=== PATIENT | male | born 1985 | race Caucasian/White ===

== ENCOUNTER 2020-07-14 19:21 | Emergency (ER) | payer OTHER, SELFPAY ==
[2020-07-14 19:22] VITALS: BP 128/71; PULSE 110; RESP 18; TEMP 39.1; O2SAT 91; BMI 45.8
--- NOTE | 2020-07-14 20:07 | ED.VISSUMM ---
- ER Visit Summary Date of Service: 07/14/20 Chief Complaint: Fever History of Present Illness: The patient is a 35 M presenting with fever. Patient states this has been ongoing for the past 8 days. He states he has had fever, chills. He complains of cough and shortness of breath. He has had nausea and diarrhea. He complains of myalgias and headache. He has had decreased appetite. He has had a change in his sense of taste. He has had decreased sense of smell since February. He was diagnosed with Covid in February and recovered. He states over the last week his girlfriend and her son also have had fever but they recovered after 24 hours. He has been taking Excedrin at home. Denies other complaints. Physical Examination: Vitals are stable. Temperature 102.4. Alert no acute distress. HEENT exam is unremarkable. Pharynx is normal Neck is supple. No meningismus Lungs are clear and equal bilaterally. Heart is regular tachycardic Abdomen is soft nontender nondistended. No guarding or rebound Extremities are unremarkable. Skin is warm and dry. No rash No focal neurologic deficit. Remainder of exam is unremarkable. Emergency Department Course and Treatment: Patient given IV fluids, Zofran, Tylenol. CBC, chemistries unremarkable. Total bili 1.5, ALT 68, AST 44. Urinalysis unremarkable. D-dimer 2.89. Chest x-ray read by myself and radiology shows no acute radiographic abnormalities. CTA of the chest shows no central or large peripheral pulmonary embolus. Trace bilateral pleural effusions. CT abdomen pelvis shows no acute abdominopelvic abnormality. Hepatosplenomegaly. Patient is feeling improved on reevaluation. Repeat temperature is 99.2. He is able to tolerate p.o. in the emergency department. He is given prescription for Zofran. Advised to follow up with primary care physician. Advised return to the ED for worsening complaints. Disposition: Discharge home Impression: Febrile illness This note was generated with [employer] dictation software. It may contain incorrect words, spelling, and punctuation that were not noted in review of the chart prior to signing ED Disposition - Plan for ED Patient: Disposition: Home or Assisted Living Instructions: ED FUO Adult Prescriptions: Ondansetron [Zofran Odt] 4 mg PO Q8H PRN PRN #10 tablet PRN Reason: Nausea Prescription Printed
[2020-07-14] MEDS: Acetaminophen 500 MG Tablet 1000 MG PO (20:23)
[2020-07-14 20:39] LABS: Red Blood Cells-Urine 0 SEEN /hpf (0-5); Squamous Epithelial Cells - UA 0 SEEN /hpf (0-5); White Blood Cells 0 SEEN /hpf (0-5)
[2020-07-14] MEDS: Ondansetron 4 MG/2 ML Vial IV (20:39)
[2020-07-14] MEDS: 0.9% Normal Saline 1,000 ML 1000 ML IV (20:39)
[2020-07-14 20:40] LABS: Absolute Lymphocyte Count 3.37 X10^3/uL (0.83-4.51); Absolute Neutrophil Count 3.4 X10^3/uL (2.0-7.7); Basophil# 0.09 X10^3/uL; Basophil% 1.2 % (0-1); Eosinophil# 0.18 X10^3/uL; Eosinophils% 2.3 % (0-5); Hematocrit 41.8 % (40-54); Hemoglobin 14.6 g/dL (13.0-16.5); Lymphocyte # 3.37 X10^3/ul (4.0); Lymphocyte % 43.3 % (19-41); Mean Corp Hgb Conc 34.9 g/dL (32-36); Mean Corpuscular Hgb 29.5 pg (27.0-32.0); Mean Corpuscular Volume 84.4 fL (80-94); Mean Platelet Vol. 10.2 fl (6.2-12.0); Monocyte# 0.73 X10^3/uL; Monocyte% 9.4 % (0-10); NRBC Flagged by Analyzer 0 % (0-5); Neutrophil # 3.38 X10^3/uL (2.7-7.7); Neutrophil % 43.4 % (47-70); POSITIVE MORPHOLOGY YES; Platelet Count 174 K/mm3 (150-450); RBC Distribution Width CV 12.8 % (11.6-14.6); RBC Distribution Width SD 39.4 fl (35.1-43.9); Red Blood Count 4.95 M/mm3 (4.6-6.2); White Blood Count 7.8 K/mm3 (4.4-11.0)
--- NOTE | 2020-07-14 20:45 | RAD_ITS ---
INDICATION: cough EXAMINATION/TECHNIQUE: X-RAY - XR Chest 1 View COMPARISON: None. FINDINGS: The lungs are clear. The cardiomediastinal silhouette is unremarkable. No pleural effusion or pneumothorax. No acute osseous abnormalities. RAD/Chest 1 View (Portable) IMPRESSION: No acute radiographic abnormalities. Electronically Signed: Juanjo Rodriguez MD at 21:01 EDT Tel , Service support ,
[2020-07-14 20:51] LABS: Color, Urine Amber (Yellow); Glucose, Dipstick Normal (Normal); Ketone-Dipstick 5 mg/dl (Negative); Leukocyte Esterase-Dipstick 25 /ul (Negative); Nitrite-Dipstick Negative (Negative); Occult Blood-Urine 25 /ul (Negative); Protein-Dipstick 30 mg/dl (Negative); Specific Gravity, Urine 1.015 (1.002-1.030); Urine Clarity Clear (Clear); Urine Urobilinogen 4 mg/dl (Normal)
[2020-07-14 20:54] LABS: Urine Bilirubin Dipstick 1 mg/dL (Negative)
[2020-07-14 20:56] LABS: Bacteria RARE /hpf (None Seen); Mucous, Urine RARE /hpf (<or=2+)
[2020-07-14 21:01] LABS: ALB/GLOB Ratio 0.8 RATIO (0.9-2.4); AST(SGOT) 44 U/L (15-37); Alanine Aminotransfer ALT/SGPT 68 U/L (16-61); Albumin, Serum 3.5 g/dL (3.2-5.0); Alkaline Phosphatase 99 U/L (45-117); Anion Gap 8 (5-15); BUN 9 mg/dL (7-18); BUN/Creat Ratio 7.8 RATIO (10-20); Calcium,Total 8.6 mg/dL (8.5-10.1); Chloride 102 mmol/L (98-107); Creatinine, Serum 1.16 mg/dL (0.70-1.30); EST Glomerular Filtration Rate 76 mL/min (>60); Est Glom Filt Rate - Afr Amer 91 mL/min (>60); Estimated Creatinine Clearance 108.08 ml/min; Globulin 4.2 g/dL (2.2-4.2); Glucose 113 mg/dL (74-106); Potassium 3.7 mmol/L (3.5-5.1); Protein, Total 7.7 g/dL (6.4-8.2); Sodium Level 135 mmol/L (136-145)
[2020-07-14 21:19] LABS: Differential Indicated SCAN CRITERIA MET
[2020-07-14 21:23] LABS: Differential Comment SCANNED; Reactive Lymphocyte 2+
[2020-07-14 21:39] LABS: D-Dimer Quantitative (DVT/PE) 2.89 FEU/ug/m (0.27-0.49)
--- NOTE | 2020-07-14 21:41 | CT_ITS ---
HISTORY: nausea, elevated liver enzymes ADDITIONAL HISTORY: None provided. EXAMINATION/TECHNIQUE: CT Abdomen And Pelvis W/ Contrast Injection CONTRAST: 100mL Isovue-370 IV contrast. Enteric contrast was not given. A radiation dose optimization technique was used for this scan. Number of images including paperwork: [id number] COMPARISON: And FINDINGS: LOWER THORAX: No consolidation. Trace bilateral pleural fluid. Enlarged, right lobe about 23 cm. LIVER: No concerning focal lesion. GALLBLADDER: No radiopaque calculi. BILE DUCTS: No significant biliary dilatation. SPLEEN: Enlarged, 19 cm craniocaudal. PANCREAS: Unremarkable. ADRENAL GLANDS: Unremarkable. KIDNEYS/URETERS: Unremarkable. BOWEL: No bowel obstruction. No significant bowel wall thickening. No localized inflammation. APPENDIX: No evidence of appendicitis. FREE FLUID: Trace free fluid. FREE AIR: None. LYMPH NODES: No pathologic appearing adenopathy. PERITONEUM, RETROPERITONEUM AND MESENTERY: Otherwise unremarkable. VASCULATURE: Unremarkable as imaged. PELVIS: Unremarkable bladder. ABDOMINAL WALL: Unremarkable. OSSEOUS AND SOFT TISSUE STRUCTURES: No acute skeletal findings. CT/Abdomen/Pelvis W IV Cont ONLY IMPRESSION: No acute abdominopelvic abnormality. Hepatosplenomegaly. Individualized dose optimization techniques were used for this CT. at 2248 Reported and signed by: Lucía Torres MD Electronically Signed: Lucía Torres MD at 22:48 EDT Tel , Service support ,
--- NOTE | 2020-07-14 21:41 | CT_ITS ---
HISTORY: elevated d dimer ADDITIONAL HISTORY: None provided. EXAMINATION/TECHNIQUE: CTA Chest WO/W Contrast Injection PULMONARY EMBOLISM PROTOCOL: 2D and 3D images to include MIP and/or volume rendered images IV CONTRAST: 100 mL Isovue-370 Number of images including paperwork: [id number] A radiation dose optimization technique was used for this scan. COMPARISON: None FINDINGS: PULMONARY ARTERIES: No central or large peripheral filling defects. Subsegmental vessels limited in evaluation due to AORTA AND GREAT VESSELS: No dissection. HEART/PERICARDIUM: Unremarkable. MEDIASTINUM: Unremarkable. ADENOPATHY: Small mediastinal nodes are not enlarged by size criteria. THYROID: Unremarkable visualized portions. LUNG PARENCHYMA: No consolidation or mass. PLEURAL SPACES: Trace bilateral pleural effusions. UPPER ABDOMEN: Decreased hepatic density compatible steatosis. OSSEOUS AND SOFT TISSUE STRUCTURES: No acute skeletal findings. CT/CTA Chest W/WO Contrast IMPRESSION: 1. No central or large peripheral pulmonary embolus. 2. Trace bilateral pleural effusions. Individualized dose optimization techniques were used for this CT. at 2252 Reported and signed by: Lucía Torres MD Electronically Signed: Lucía Torres MD at 22:52 EDT Tel , Service support ,
[2020-07-14 22:25] VITALS: PULSE 86; RESP 16; TEMP 37.3; O2SAT 96
--- NOTE | 2020-07-14 23:11 | ED.DEP ---
ED Disposition - Plan for ED Patient: Instructions: ED FUO Adult Prescriptions: Ondansetron [Zofran Odt] 4 mg PO Q8H PRN PRN #10 tablet PRN Reason: Nausea Prescription Printed
[2020-07-14 23:33] VITALS: PULSE 78; RESP 16; O2SAT 98
[2020-07-16 13:57] LABS: Pathologist Review Reviewed
== END 2020-07-14 23:33 | disposition home or self-care (01) ==
LOC: ED 20:06
PROVIDERS: Emergency Provider Emergency Medicine
DX: R50.9 Fever, unspecified (principal); R16.2 Hepatomegaly with splenomegaly, not elsewhere classified; J90 Pleural effusion, not elsewhere classified; Z86.16 Personal history of COVID-19; R05 Cough; R06.02 Shortness of breath; R11.0 Nausea; R19.7 Diarrhea, unspecified; M79.10 Myalgia, unspecified site; R51.9 Headache, unspecified
CPT/HCPCS: 71045; 71275; 74177; 80053; 81001; 85025; 85379; 87426; 87804; 96361; 96374; 99284; Q9967; J2405